=== PATIENT | female | born 1990 ===

== ENCOUNTER 2017-03-31 00:03 | Emergency (ER) | payer MEDICAID, OTHER ==
[2017-03-31 00:14] VITALS: TEMP 98
--- NOTE | 2017-03-31 00:39 | ED PDOC ---
HPI: Skin/Bite Injury Time Seen by Provider: 03/31/17 00:17 Chief Complaint (Nursing): Abnormal Skin Integrity Chief Complaint (Provider): rash History Per: Patient History/Exam Limitations: no limitations Onset/Duration Of Symptoms: Days (4) Current Symptoms Are (Timing): Still Present Quality Of Symptoms: Painful, Itching Additional History Per: Patient Additional Complaint(s): 26 y/o female presents with painful rash x 4 days. Patient states area started with itching, then 1 day later noted bumps to pop up on left side of abdomen. 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 Patient notes rash to have stop spreading since starting medication. Patient states the physician told her it is unusual for her to have Shingles at this age , and told her she may have problems with her immune system, so patient is requesting HIV testing. Denies fever, nausea/vomiting, cough, chest pain, shortness of breath, changes in bowel movements, recent travel, sick contacts. Past Medical History Reviewed: Historical Data, Nursing Documentation, Vital Signs Vital Signs: Last Vital Signs Temp 98 F 03/31/17 00:10 Pulse 123 H 03/31/17 00:10 Resp 16 03/31/17 00:10 BP 159/72 H 03/31/17 00:10 Pulse Ox 99 03/31/17 01:52 - Medical History PMH: No Chronic Diseases - Surgical History Surgical History: No Surg Hx - Family History Family History: States: No Known Family Hx - Immunization History Hx Tetanus Toxoid Vaccination: No Hx Influenza Vaccination: No Hx Pneumococcal Vaccination: No - Home Medications Home Medications: Ambulatory Orders Medication Instructions Recorded Inez 08/23/13 Clotrimazole 1% Vaginal 1 unit VG QWK #20 tube 08/23/13 [Clotrimazole] Metronidazole [Metrogel-Vaginal] 1 ea VG HS #5 gel 08/23/13 Metronidazole [Flagyl] 500 mg PO BID #14 tab 05/28/15 - Allergies Allergies/Adverse Reactions: Allergies Allergy/AdvReac Type Severity Reaction Status Date / Time No Known Allergies Allergy Verified 08/29/15 20:33 Review of Systems ROS Statement: Except As Marked, All Systems Reviewed And Found Negative Skin: Positive for: Rash Physical Exam - Reviewed Nursing Documentation Reviewed: Yes Vital Signs Reviewed: Yes - Physical Exam Appears: Positive for: Well, Non-toxic, No Acute Distress Head Exam: Positive for: ATRAUMATIC, NORMAL INSPECTION, NORMOCEPHALIC Skin: Positive for: Rash (vesiular rash noted left upper abdomen; no drainage, surrounding erythema noted) ENT: Positive for: Normal ENT Inspection Cardiovascular/Chest: Positive for: Regular Rate, Rhythm Respiratory: Positive for: Normal Breath Sounds Gastrointestinal/Abdominal: Positive for: Normal Exam Extremity: Positive for: Normal ROM Neurologic/Psych: Positive for: Alert, Oriented - ECG O2 Sat by Pulse Oximetry: 99 - Progress ED Course And Treament: rapid HIV neg. Patient educated on findings, advised to continue current medications. Follow up with PMD in 2-3 days. Return to ED for worsening/concerning symptoms. Disposition - Clinical Impression Clinical Impression: Nicholas - Patient ED Disposition Is Patient to be Admitted: No Counseled Patient/Family Regarding: Studies Performed, Diagnosis, Need For Followup - Disposition Disposition: Routine/Home Disposition Time: 01:50 Condition: GOOD Additional Instructions: Follow up with primary doctor in 2-3 days. Continue current medication. Return to ED for worsening/concerning symptoms Instructions: [facility] (ED)
[2017-03-31 02:04] VITALS: BP 134/75; PULSE 73; RESP 18; O2SAT 98
== END 2017-03-31 02:05 | disposition home or self-care (01) ==
LOC: H.ER 00:03
DX: B02.9 Zoster without complications (principal)